=== PATIENT | female | born 1960 | race Caucasian/White ===

== ENCOUNTER 2020-09-04 15:42 | Inpatient (IN) | payer OTHER ==
[~2020-09-04] VITALS: Ht 165.1 cm; Wt 221.8 kg
[2020-09-04] MEDS ORDERED: TIZANIDINE HCL4 MG PO (19:43)
[2020-09-04] MEDS ORDERED: ELAVIL 50 MG TA50 MG PO (19:44)
[2020-09-04] MEDS ORDERED: CLONIDINE HCL0.2 MG PO (19:44)
[2020-09-04] MEDS ORDERED: FLUOXETINE HCL40 MG PO (19:45)
[2020-09-04] MEDS ORDERED: FOLIC ACID 1 MG1 MG PO (19:45)
[2020-09-04] MEDS ORDERED: HYDROXYZINE HCL25 MG PO (19:46)
[2020-09-04] MEDS ORDERED: LOPRESSOR 50 MG50 MG PO (19:47)
[2020-09-04] MEDS ORDERED: VITAMIN D21250 MCG PO (19:55)
[2020-09-04] MEDS ORDERED: CLONAZEPAM1 MG PO (19:57)
[2020-09-04] MEDS ORDERED: HYDROCODON-ACE1 EAC2 PO (19:57)
[2020-09-04] MEDS ORDERED: CETIRIZINE HCL10 MG PO (19:58)
[2020-09-04] MEDS ORDERED: VENTOLIN HFA 66.7 GM INH (19:59)
[2020-09-05 04:04] LABS: HEMOGLOBIN 9.4 gm/dl (12.3-15.3); RED BLOOD COUNT 4.17 M/UL (4.00-5.10); WHITE BLOOD COUNT 10.5 K/UL (4.5-11.0)
[2020-09-05 04:44] LABS: BUN/CREATININE RATIO 14 (0-10)
--- NOTE | 2020-09-05 09:37 | NUR ---
patient given herself jose loredo from home.
--- NOTE | 2020-09-05 10:37 | NUR ---
informed violetta russell of dr. seo that ct scan will not be able to do because of patient weight unable to fit on the ct scan machine. violetta gottlieb informed me that he already notified dr. seo and will notify dr. garrido
--- NOTE | 2020-09-05 19:08 | NUR ---
chart review at 1800 not completed by dayshift
[2020-09-06 02:51] LABS: HEMOGLOBIN 8.9 gm/dl (12.3-15.3); RED BLOOD COUNT 3.86 M/UL (4.00-5.10); WHITE BLOOD COUNT 11.5 K/UL (4.5-11.0)
[2020-09-06 03:17] LABS: BUN/CREATININE RATIO 14 (0-10)
[2020-09-07 07:05] LABS: HEMOGLOBIN 8.1 gm/dl (12.3-15.3); RED BLOOD COUNT 3.71 M/UL (4.00-5.10); WHITE BLOOD COUNT 13.5 K/UL (4.5-11.0)
[2020-09-07 07:14] LABS: BUN/CREATININE RATIO 15 (0-10)
[2020-09-08 04:38] LABS: HEMOGLOBIN 8.2 gm/dl (12.3-15.3); RED BLOOD COUNT 3.66 M/UL (4.00-5.10); WHITE BLOOD COUNT 15.2 K/UL (4.5-11.0)
[2020-09-08 05:16] LABS: BUN/CREATININE RATIO 18 (0-10)
[2020-09-09 03:16] LABS: HEMOGLOBIN 7.6 gm/dl (12.3-15.3); RED BLOOD COUNT 3.36 M/UL (4.00-5.10); WHITE BLOOD COUNT 14.9 K/UL (4.5-11.0)
[2020-09-09 03:43] LABS: BUN/CREATININE RATIO 23 (0-10)
[2020-09-11 05:20] LABS: HEMOGLOBIN 7.4 gm/dl (12.3-15.3); RED BLOOD COUNT 3.22 M/UL (4.00-5.10); WHITE BLOOD COUNT 16.7 K/UL (4.5-11.0)
[2020-09-11 05:57] LABS: BUN/CREATININE RATIO 20 (0-10)
[2020-09-12 03:05] LABS: RED BLOOD COUNT 3.18 M/UL (4.00-5.10); WHITE BLOOD COUNT 16.6 K/UL (4.5-11.0)
[2020-09-12 03:07] LABS: HEMOGLOBIN 6.8 gm/dl (12.3-15.3)
--- NOTE | 2020-09-12 03:18 | NUR ---
AT 2240 PULLED DILAUDID FROM THE [facility] CELL AND GAVE TO THE PATIENT. I EXPLAINED THAT HER SBP WAS 98 AND I WAS GOING TO GIVE HER THE MEDICATION BUT I WOULD NOT GIVE HER MORE UNLESS HER SBP INCREASED. I GAVE THE PT THE MED AND LEFT THE ROOM. 0305 THE PT CALLED OUT CRYING AND WANTED HER DILAUDID, I EXPLAINED THAT I GAVE HER LAST DOSE 20 MINUTES PRIOR. SHE THEN SAID SHE DIDN'T THINK I GAVE IT TO HER. SHE SAID SHE DIDN'T REMEMBER ME GIVING IT TO HER. I EXPLAINED THAT I GAVE IT ALREADY. SHE THEN RANG OUT AND ASK THE TECH IF I REALLY GAVE HER THE PAIN MED. AT 0235 PT AGAIN RANG OUT FOR THE DILAUDID AND I ASK THE TECH TO GO TO THE ROOM WITH ME TO WITNESS ME GIVING THE MED. THE PT AGAIN SAID SHE DIDN'T REMEMBER GETTING THE DOSE AT 2240 AND SHE DIDN'T ME TO UPSET ME. I EXPLAINED THAT IT DID UPSET ME THAT SHE ACCUSED ME OF NOT GIVING HER PAIN MEDICATION AND THAT I ASK THE TECH TO WITNESS GIVING HER THE PAIN MED.
--- NOTE | 2020-09-12 03:28 | NUR ---
0310 LAB CALLED A CRITICAL HGB ON THE PT OF 6.8. THE PATIENT'S HGB HAS BEEN TRENDING DOWN SINCE 09/05/20- 9.4 TO THIS AM IT IS 6.8. IT HAS BEEN REPORTED TO DR. BENNETT THAT THE PT HAS HAD A VERY HEAVY MENSTRUAL FLOW WITH VERY LARGE CLOTS. WELL A URINE THAT IS VERY DARK WITH THICK SEDIMENT, NO IV ANTIBIOTICS OR FLUIDS. HGB HAS BEEN REPORTED TO DR. DE LA ROSA AND I'M WAITING ON A RESPONSE. IF I DON'T HEAR FROM HIM I WILL CALL AGAIN.
[2020-09-12 03:45] LABS: BUN/CREATININE RATIO 20 (0-10)
--- NOTE | 2020-09-12 03:59 | NUR ---
REPORTED HGB [address] DE LA ROSA; ORDER TO TYPE AND SCREEN AND TRANSFUSE 2 UNITS.
[2020-09-12 19:53] LABS: HEMOGLOBIN 8.4 gm/dl (12.3-15.3); WHITE BLOOD COUNT 14.9 K/UL (4.5-11.0)
[2020-09-12 20:11] LABS: RED BLOOD COUNT 3.6 M/UL (4.00-5.10)
[2020-09-13 05:27] LABS: HEMOGLOBIN 8.3 gm/dl (12.3-15.3); RED BLOOD COUNT 3.58 M/UL (4.00-5.10); WHITE BLOOD COUNT 15.4 K/UL (4.5-11.0)
[2020-09-13 05:57] LABS: BUN/CREATININE RATIO 16 (0-10)
[2020-09-14 04:49] LABS: HEMOGLOBIN 9.1 gm/dl (12.3-15.3); RED BLOOD COUNT 3.9 M/UL (4.00-5.10)
[2020-09-14 05:19] LABS: BUN/CREATININE RATIO 16 (0-10)
[2020-09-16 03:24] LABS: HEMOGLOBIN 8.4 gm/dl (12.3-15.3); RED BLOOD COUNT 3.58 M/UL (4.00-5.10); WHITE BLOOD COUNT 9.9 K/UL (4.5-11.0)
[2020-09-16 03:38] LABS: BUN/CREATININE RATIO 14 (0-10)
[2020-09-17 04:12] LABS: HEMOGLOBIN 9.4 gm/dl (12.3-15.3); RED BLOOD COUNT 3.91 M/UL (4.00-5.10); WHITE BLOOD COUNT 11.7 K/UL (4.5-11.0)
[2020-09-17 04:30] LABS: BUN/CREATININE RATIO 10 (0-10)
[2020-09-18 06:04] LABS: HEMOGLOBIN 9.1 gm/dl (12.3-15.3); RED BLOOD COUNT 3.77 M/UL (4.00-5.10); WHITE BLOOD COUNT 10.6 K/UL (4.5-11.0)
[2020-09-18 06:30] LABS: BUN/CREATININE RATIO 13 (0-10)
[2020-09-19 03:17] LABS: HEMOGLOBIN 8.9 gm/dl (12.3-15.3); RED BLOOD COUNT 3.74 M/UL (4.00-5.10); WHITE BLOOD COUNT 8.7 K/UL (4.5-11.0)
[2020-09-19 03:38] LABS: BUN/CREATININE RATIO 14 (0-10)
[2020-09-20 03:51] LABS: HEMOGLOBIN 9.5 gm/dl (12.3-15.3); RED BLOOD COUNT 3.87 M/UL (4.00-5.10); WHITE BLOOD COUNT 9.5 K/UL (4.5-11.0)
[2020-09-20 04:09] LABS: BUN/CREATININE RATIO 13 (0-10)
--- NOTE | 2020-09-20 17:19 | NUR ---
[facility] TRANSFER TEAM CONTACTED AT THIS TIME AND STATES THAT THEY HAVE MADE THE DECISION TO TAKE THE PATIENT OFF OF THIER WAIT LIST DUE TO HIGH PATIENT VOLUMES IN [facility] ER AND HIGH PATIENT VOLUMES ON THI WAIT LIST. THEY STATE THAT THIS DECISION WAS MADE BY [facility] ACO COORDINATOR. PROVIDER MADE AWARE WITH NO NEW ORDER GIVEN.
[2020-09-21 06:55] LABS: HEMOGLOBIN 8.8 gm/dl (12.3-15.3)
--- NOTE | 2020-09-21 17:38 | NUR ---
1700 CALLED REPORT TO [facility] PT GOING TO [address]03, DR. JOHNSON, PT GOING BY AMBULANCE BLS PER DR. AUGUSTE
== END 2020-09-21 18:55 | DRG 534 ==
LOC: M/S 18:58
PROVIDERS: Internal Medicine; ADMIT Internal Medicine
PROC: 30233N1 Transfusion of Nonautologous Red Blood Cells into Peripheral Vein, Percutaneous Approach (ICD-10-PCS; principal; 2020-09-12)
DX: S72.451A Displaced supracondylar fracture without intracondylar extension of lower end of right femur, initial encounter for closed fracture (principal); D62 Acute posthemorrhagic anemia; R65.10 Systemic inflammatory response syndrome (SIRS) of non-infectious origin without acute organ dysfunction; E66.2 Morbid (severe) obesity with alveolar hypoventilation; N39.0 Urinary tract infection, site not specified; E87.1 Hypo-osmolality and hyponatremia; Z68.45 Body mass index [BMI] 70 or greater, adult; Z20.822 Contact with and (suspected) exposure to COVID-19; J44.9 Chronic obstructive pulmonary disease, unspecified; I11.0 Hypertensive heart disease with heart failure; F41.9 Anxiety disorder, unspecified; F32.9 Major depressive disorder, single episode, unspecified; G89.29 Other chronic pain; F17.210 Nicotine dependence, cigarettes, uncomplicated; N93.9 Abnormal uterine and vaginal bleeding, unspecified; N95.0 Postmenopausal bleeding; F11.10 Opioid abuse, uncomplicated; W18.39XA Other fall on same level, initial encounter; S30.0XXA Contusion of lower back and pelvis, initial encounter; Y92.092 Bedroom in other non-institutional residence as the place of occurrence of the external cause; Z91.041 Radiographic dye allergy status; Z90.49 Acquired absence of other specified parts of digestive tract; Z99.81 Dependence on supplemental oxygen; Z83.3 Family history of diabetes mellitus
CPT/HCPCS: 36415; 36430; 71045; 73552; 73560; 80048; 80053; 80061; 81001; 82550; 82553; 83036; 83540; 83550; 83735; 84100; 84439; 84443; 84484; 85014; 85018; 85025; 85027; 86850; 86900; 86901; 86920; 93005; 94640; 94760; J0696; J1170; J1644; J1650; J1756; J2270; P9016; Q0177; U0002